=== PATIENT | male | born 1955 | race African-American/Black ===

== ENCOUNTER 2020-07-28 11:59 | Emergency (ER) | payer MEDICARE, MEDICAID ==
[~2020-07-28] VITALS: Ht 177.8 cm; Wt 76.0 kg
[2020-07-28] MEDS ORDERED: ACETAMINOPHEN 325MG TABLET PO ONE (12:30)
[2020-07-28] MEDS ORDERED: SODIUM CHLORIDE 0.9% 1,000 ML IV ONE (13:01)
[2020-07-28] MEDS ORDERED: MORPHINE SULFATE 4 MG/ML CPJ (NOT FOR IM USE) IV STA (13:01)
[2020-07-28] MEDS ORDERED: ONDANSETRON HCL 4MG/2ML INJ IV STA (13:01)
[2020-07-28] MEDS ORDERED: KETAMINE HCL 50 MG/ML 10ML IV ONE (13:15)
[2020-07-28] MEDS ORDERED: PROPOFOL 200MG/20ML VIAL IV ONE (13:15)
[2020-07-28 16:03] VITALS: BP 157/98
[2020-08-20] MEDS ORDERED: METF-414 PO (06:40)
== END 2020-07-28 16:44 | disposition home or self-care (01) ==
LOC: ER 12:52
DX: S82.301A Unspecified fracture of lower end of right tibia, initial encounter for closed fracture (principal); S82.401A Unspecified fracture of shaft of right fibula, initial encounter for closed fracture; E11.9 Type 2 diabetes mellitus without complications; W01.0XXA Fall on same level from slipping, tripping and stumbling without subsequent striking against object, initial encounter; Y93.89 Activity, other specified; Y92.89 Other specified places as the place of occurrence of the external cause; Y99.8 Other external cause status
CPT/HCPCS: 27752; 73610; 96361; 96374; 99152; 99285; J2270; J2405; J2704; J3490; J7030

== ENCOUNTER → 2020-08-16 | Outpatient (CLI) | payer MEDICARE, MEDICAID ==
[~2020-08-16] MED LIST: METF-414 PO
== END | disposition home or self-care (01) ==
LOC: LAB 10:23
PROVIDERS: ATTEND Orthopaedic Surgery
DX: Z01.812 Encounter for preprocedural laboratory examination (principal); Z20.828 Contact with and (suspected) exposure to other viral communicable diseases
CPT/HCPCS: C9803; U0003

== ENCOUNTER 2020-08-20 08:02 | Inpatient (IN) | payer MEDICARE, MEDICAID ==
[~2020-08-20] VITALS: Ht 177.8 cm; Wt 63.5 kg
[2020-08-20 08:57] LABS: CLARITY URINE CLOUDY (CLEAR); COLOR URINE DARK YELLOW (YELLOW); KETONES URINE 1+ (NEGATIVE); LEUKOCYTE ESTERASE URINE TRACE (NEGATIVE); NITRITE URINE NEGATIVE (NEGATIVE); OCCULT BLOOD URINE NEGATIVE (NEGATIVE); PROTEIN URINE 1+ (NEGATIVE); SPECIFIC GRAVITY URINE 1.032 (1.005-1.030); UROBILINOGEN URINE 0.2 E.U./dL (0.2-1.0)
[2020-08-20] MEDS ORDERED: SODIUM CHLORIDE 0.9% 1,000 ML IV SCH (09:15)
[2020-08-20] MEDS ORDERED: VANCOMYCIN HCL 1 GM/VIAL ONE (11:22)
[2020-08-20] MEDS ORDERED: MORPHINE SULFATE/PF 1MG/ML 10ML AMP ONE (11:22)
[2020-08-20] MEDS ORDERED: BACITRACIN 50,000 UNITS/VIAL ONE (11:22)
[2020-08-20] MEDS ORDERED: ROCURONIUM BROMIDE 10MG/ML VIAL 5ML IV ONE ×2 (12:35→17:52)
[2020-08-20] MEDS ORDERED: TRANEXAMIC ACID 1,000 MG/10 ML IV ONE (12:45)
[2020-08-20] MEDS ORDERED: TRANEXAMIC ACID 1,000 MG in SODIUM CHLORIDE 0.9% 100 ML IV NR (13:00)
[2020-08-20] MEDS ORDERED: HYDROMORPHONE HCL/PF 2MG/ML CPJ IV PRN (19:00)
[2020-08-20] MEDS ORDERED: ONDANSETRON HCL 4MG/2ML INJ IV PRN (19:00)
[2020-08-20] MEDS ORDERED: LABETALOL 5MG/ML SYR 20 MG/4 ML SYRINGE IV PRN (19:00)
[2020-08-20] MEDS ORDERED: MEPERIDINE HCL/PF 25MG/ML CPJ IV PRN (19:00)
[2020-08-20] MEDS ORDERED: MAGNESIUM HYDROXIDE 400MG/5ML 30ML UDC PO PRN (20:00)
[2020-08-20] MEDS ORDERED: ONDANSETRON INJ IV PRN (20:00)
[2020-08-20] MEDS ORDERED: NALOXONE INJ IV PRN (20:00)
[2020-08-20] MEDS ORDERED: HYDROMORPHONE PCA 10MG/50ML IV PRN (20:00)
[2020-08-20] MEDS ORDERED: ACETAMINOPHEN 325MG TABLET PO PRN (20:00)
[2020-08-20] MEDS ORDERED: HYDROCODONE/ACETAMINOPHEN 10/325MG TABLET PO PRN ×2 (20:00)
[2020-08-20] MEDS ORDERED: DIPHENHYDRAMINE INJ IV PRN (20:00)
[2020-08-20] MEDS ORDERED: HYDROMORPHONE PCA 50 ML IV ONE (21:06)
[2020-08-20 21:48] VITALS: BP 145/70
[2020-08-20] MEDS ORDERED: CEFAZOLIN 2,000 MG in DEXT 5% WATER 100 ML IV SCH (23:00)
[2020-08-21] VITALS: BP 144/79
[2020-08-21] MEDS: CEFAZOLIN 2,000 MG in DEXT 5% WATER 100 ML IV SCH ×3 (00:14→16:06)
[2020-08-21] MEDS ORDERED: DEXTROSE 50% WATER 50ML SYRINGE IV PRN (00:45)
[2020-08-21 04:00] VITALS: BP 140/75
[2020-08-21] MEDS ORDERED: CEFAZOLIN 2,000 MG in DEXT 5% WATER 100 ML IV SCH ×3 (05:00)
[2020-08-21 06:49] LABS: CHLORIDE 106 mEq/L (98-107)
[2020-08-21] MEDS: BLOOD SUGAR DIAGNOSTIC STRIP TEST SCH ×4 (06:57→21:40)
[2020-08-21 06:59] LABS: BASOPHILS % 0.2 % (0.0-2.0); EOSINOPHILS % 1.8 % (0.0-5.0); HEMATOCRIT. 27.8 % (42.0-52.0); HEMOGLOBIN. 9.5 g/dL (14.0-18.0); LYMPHOCYTES % 10.6 % (20.0-50.0); MEAN CORPUSCULAR HEMOGLOBIN 32.2 pg (28.0-32.0); MEAN CORPUSCULAR VOLUME 94.5 fL (80.0-94.0); MONOCYTES % 8.2 % (2.0-8.0); NEUTROPHILS % 79.2 % (40.0-76.0); PLATELET 206 x1000/uL (130-400); RED BLOOD CELL COUNT 2.94 mill/uL (4.7-6.1); RED CELL DISTRIBUTION WIDTH 12.7 % (11.6-14.6)
[2020-08-21 08:00] VITALS: BP 145/71
[2020-08-21] MEDS: DOCUSATE SODIUM 100MG CAPSULE PO SCH ×2 (08:59→16:06)
[2020-08-21] MEDS: ENOXAPARIN 40MG/0.4ML SYR SUBCUT SCH (09:00)
[2020-08-21] MEDS: ONDANSETRON HCL 4MG/2ML INJ IV PRN ×2 (09:31→21:28)
[2020-08-21] MEDS: INSULIN LISPRO 100 UNITS/ML SUBCUT SCH ×4 (09:46→23:06)
[2020-08-21 12:00] VITALS: BP 134/63
[2020-08-21 16:00] VITALS: BP 121/71
[2020-08-21] MEDS: METFORMIN HCL 500MG TABLET PO SCH (17:43)
[2020-08-21 20:00] VITALS: BP 140/74
[2020-08-22] VITALS: BP 118/68
[2020-08-22] MEDS: INSULIN LISPRO 100 UNITS/ML SUBCUT SCH ×4 (07:50→21:00)
[2020-08-22 08:00] VITALS: BP 119/72
[2020-08-22] MEDS: BLOOD SUGAR DIAGNOSTIC STRIP TEST SCH ×4 (08:14→21:00)
[2020-08-22] MEDS: DOCUSATE SODIUM 100MG CAPSULE PO SCH ×2 (08:50→18:20)
[2020-08-22] MEDS: METFORMIN HCL 500MG TABLET PO SCH ×2 (08:50→18:20)
[2020-08-22] MEDS: ENOXAPARIN 40MG/0.4ML SYR SUBCUT SCH (09:00)
[2020-08-22 12:00] VITALS: BP 117/72
[2020-08-22] MEDS: TAMSULOSIN HCL 0.4MG SR CAPSULE PO SCH (12:18)
[2020-08-22 16:00] VITALS: BP 97/61
[2020-08-22 20:00] VITALS: BP 105/65
[2020-08-22] MEDS: GABAPENTIN 100MG CAPSULE PO SCH (22:08)
[2020-08-23] VITALS: BP 106/62
[2020-08-23 04:00] VITALS: BP 115/58
[2020-08-23] MEDS: GABAPENTIN 100MG CAPSULE PO SCH (06:03)
[2020-08-23 06:11] LABS: BASOPHILS % 0.5 % (0.0-2.0); HEMATOCRIT. 27.3 % (42.0-52.0); HEMOGLOBIN. 9.2 g/dL (14.0-18.0); LYMPHOCYTES % 7.1 % (20.0-50.0); MEAN CORPUSCULAR HEMOGLOBIN 31.6 pg (28.0-32.0); MEAN CORPUSCULAR VOLUME 93.7 fL (80.0-94.0); MEAN PLATELET VOLUME 7.9 fl (7.4-10.4); MONOCYTES % 9.4 % (2.0-8.0); PLATELET 213 x1000/uL (130-400); RED BLOOD CELL COUNT 2.91 mill/uL (4.7-6.1); RED CELL DISTRIBUTION WIDTH 12.7 % (11.6-14.6)
[2020-08-23] MEDS: BLOOD SUGAR DIAGNOSTIC STRIP TEST SCH ×2 (06:31→12:12)
[2020-08-23 06:47] LABS: CHLORIDE 98 mEq/L (98-107)
[2020-08-23 07:15] VITALS: BP 100/60
[2020-08-23] MEDS: DOCUSATE SODIUM 100MG CAPSULE PO SCH (08:56)
[2020-08-23] MEDS: METFORMIN HCL 500MG TABLET PO SCH (08:56)
[2020-08-23] MEDS: TAMSULOSIN HCL 0.4MG SR CAPSULE PO SCH (08:57)
[2020-08-23] MEDS: ENOXAPARIN 40MG/0.4ML SYR SUBCUT SCH (08:57)
[2020-08-23] MEDS: INSULIN LISPRO 100 UNITS/ML SUBCUT SCH ×2 (09:13→12:16)
[2020-08-23 10:51] VITALS: BP 108/74
[2020-08-23 12:00] VITALS: BP 70/50
== END 2020-08-23 12:55 | disposition home or self-care (01) | DRG 492 ==
LOC: OR 08:02 → 6EST 20:53
PROVIDERS: ADMIT Internal Medicine; ATTEND Internal Medicine
PROC: 0QSG04Z Reposition Right Tibia with Internal Fixation Device, Open Approach (ICD-10-PCS; principal; 2020-08-21)
PROC: 0QSJ04Z Reposition Right Fibula with Internal Fixation Device, Open Approach (ICD-10-PCS; 2020-08-21)
DX: S82.61XA Displaced fracture of lateral malleolus of right fibula, initial encounter for closed fracture (principal); E43 Unspecified severe protein-calorie malnutrition; E87.1 Hypo-osmolality and hyponatremia; S82.301A Unspecified fracture of lower end of right tibia, initial encounter for closed fracture; E11.9 Type 2 diabetes mellitus without complications; D64.9 Anemia, unspecified; R33.9 Retention of urine, unspecified; W18.39XA Other fall on same level, initial encounter; D72.829 Elevated white blood cell count, unspecified; Z79.4 Long term (current) use of insulin; Z79.899 Other long term (current) drug therapy; Y93.89 Activity, other specified; Y92.89 Other specified places as the place of occurrence of the external cause; Y99.8 Other external cause status
CPT/HCPCS: 36415; 73590; 76000; 80048; 81003; 82962; 83036; 85025; 97116; 97162; 97166; 97530; C1713; J0690; J1170; J1200; J1650; J1815; J2274; J2405; J3370; J3490; J7050; J7060

== ENCOUNTER 2020-09-12 19:01 | Emergency (ER) | payer MEDICARE, MEDICAID ==
[~2020-09-12] VITALS: Ht 177.8 cm; Wt 64.0 kg
[~2020-09-12 19:01] MED LIST changes: +GABA-529 PO; +LEVO500T89 MT
[2020-09-12 19:33] VITALS: BP 110/73
== END 2020-09-12 20:54 | disposition home or self-care (01) ==
LOC: ER 19:01
DX: Z48.00 Encounter for change or removal of nonsurgical wound dressing (principal); E11.9 Type 2 diabetes mellitus without complications; Z98.890 Other specified postprocedural states
CPT/HCPCS: 99281